=== PATIENT | female | born 1995 | race Caucasian/White ===

== ENCOUNTER 2022-07-15 02:47 | Inpatient (IN) ==
[2022-07-15] MEDS ORDERED: Lidocaine 1% 20 ML MDV INFILT PRN (03:30)
[2022-07-15] MEDS ORDERED: Azithromycin 500 MG in 0.9 % Sodium Chloride 250 ML IVPB PRN (03:30)
[2022-07-15] MEDS ORDERED: Famotidine 20 MG/2 ML VIAL IVP PRN (03:30)
[2022-07-15] MEDS ORDERED: *HR* Nalbuphine 10 MG/ML AMPUL IV PRN (03:30)
[2022-07-15] MEDS ORDERED: Naloxone 0.4 MG/ML INJ IVP PRN (03:30)
[2022-07-15] MEDS ORDERED: Ondansetron 4 MG/2 ML VIAL IVP PRN (03:30)
[2022-07-15] MEDS ORDERED: Ringers Solution, Lactated 1,000 ML IVC SCH (03:30)
[2022-07-15] MEDS ORDERED: Metoclopramide 10 MG/2 ML VIAL IVP PRN (03:30)
[2022-07-15] MEDS ORDERED: Oxytocin 30 UNIT/503 ML BAG IVC SCH ×2 (03:30→13:47)
[2022-07-15] MEDS ORDERED: *HR* FentaNYL (PF) 100 MCG/2 ML VIAL IVP PRN (03:30)
[2022-07-15 04:17] LABS: Basophils % 0.2 %; Eosinophils # 0.1 K/mcL (0.0-0.6); Eosinophils % 0.7 %; Hematocrit 35.2 % (35.3-44.9); Hemoglobin 11.6 g/dL (11.5-15.4); Immature Granulocytes % 0.8 % (0-4); Lymphocytes % 14.5 %; Mean Corpuscular Hemoglobin 25.9 pg (28.0-33.3); Mean Corpuscular Volume 78.6 fL (83.0-100.0); Mean Platelet Volume 8.6 fL (9.4-12.4); Monocytes % 6.2 %; Neutrophils # 9.3 K/mcL (1.6-8.9); Platelet Count 219 K/mcL (140-400); Red Blood Count 4.48 M/mcL (3.82-4.97); Red Cell Distribution Width 24.9 % (11.5-14.5); Segmented Neutrophils % 77.6 %
[2022-07-15 04:18] LABS: Lymphocytes # 1.7 K/mcL (0.6-4.6); Monocytes # 0.7 K/mcL (0.0-1.3)
[2022-07-15 04:25] LABS: Bacteria,Urine Few per hpf (None-Few); Bilirubin,Urine Negative (Negative); Blood,Urine Negative (Negative); Clarity,Urine Turbid (Clear); Color,Urine Yellow (Yellow); Glucose,Urine (UA) Normal (Normal); Hyaline Casts,Urine Few per lpf (None Seen); Ketones,Urine 10 mg/dL (Negative); Leukocyte Esterase,Urine Small (Negative); Mucus,Urine Many per lpf (None-Few); Nitrite,Urine Negative (Negative); Protein,Urine 30 mg/dL (Neg-Trace); RBC,Urine 0-3 per hpf (0-3); Specific Gravity,Urine 1.027 (1.010-1.025); Squamous Epithelial Cell,Urine Moderate per hpf (None-Few); Urobilinogen,Urine Normal (Normal)
[2022-07-15 04:28] LABS: Amphetamine Screen,Urine Negative ng/mL (Cutoff=1000); Barbiturate Screen,Urine Negative ng/mL (Cutoff=200); Benzodiazepines Screen,Urine Negative ng/mL (Cutoff=200); Cannabinoid Screen,Urine Negative ng/mL (Cutoff = 50); Cocaine Screen,Urine Negative ng/mL (Cutoff= 300); Creatinine,Urine 185 mg/dL; Opiate Screen,Urine Negative ng/mL (Cutoff=300); Phencyclidine Screen,Urine Negative ng/mL (Cutoff=25)
[2022-07-15 04:29] LABS: Alanine Aminotransferase 14 Units/L (7-52); Aspartate Amino Transferase 12 Units/L (13-39); BUN/Creatinine Ratio 14 (6-26); Blood Urea Nitrogen 8 mg/dL (6-20); Lactate Dehydrogenase 120 Units/L (140-271); Uric Acid 4.5 mg/dL (2.3-7.6)
[2022-07-15 04:47] LABS: Anisocytosis 3+ (Not Present)
[2022-07-15 04:48] LABS: Microcytosis Present (Not Present); Platelet Estimate Normal (Normal)
[2022-07-15] MEDS ORDERED: Epidural Premix (fent/bupiv) 110 ML EP ONE (07:11)
[2022-07-15] MEDS ORDERED: *HR* Phenylephrine 10 MG/ML VIAL ONE (07:16)
[2022-07-15] MEDS ORDERED: *HR* Ropivacaine/PF 0.5% 20 ML VIAL ONE (09:09)
[2022-07-15] MEDS ORDERED: Ropivacaine/PF 0.2% 20 ML VIAL ONE (09:09)
[2022-07-15] MEDS ORDERED: EPHEDrine 50 MG/ML VIAL IVP PRN (11:17)
[2022-07-15] MEDS ORDERED: Epidural Premix (fent/bupiv) 110 ML EP SCH (11:30)
[2022-07-15] MEDS ORDERED: Benzocaine/Menthol 56 GM AEROSOL SPRAY TP PRN (13:47)
[2022-07-15] MEDS ORDERED: Ondansetron ODT 4 MG TAB.RAPDIS SL PRN (13:47)
[2022-07-15] MEDS ORDERED: Lanolin 7 G OINT...G. TP PRN (13:47)
[2022-07-15] MEDS ORDERED: OXYTOCIN/RINGERS LACTATE 10 UNIT/166.6 ML BAG IVC ONE (13:47)
[2022-07-15] MEDS: Ibuprofen 600 MG TABLET PO SCH ×2 (14:49→20:35)
[2022-07-15] MEDS: Acetaminophen 325 MG TABLET PO SCH ×2 (14:49→20:35)
[2022-07-16] MEDS: Acetaminophen 325 MG TABLET PO SCH ×2 (05:46→12:48)
[2022-07-16] MEDS: Ibuprofen 600 MG TABLET PO SCH ×2 (05:46→12:48)
[2022-07-16 07:04] VITALS: BP 99/62; PULSE 90; TEMP 97.8; O2SAT 98
[2022-07-16] MEDS ORDERED: Prenatal Vit/FA 1 EACH TABLET PO SCH (09:00)
== END 2022-07-16 13:48 | disposition home or self-care (01) | DRG 807 ==
LOC: 1NENULAB 02:47 → 1NENUOBS 12:45
PROVIDERS: ADMIT Obstetrics & Gynecology; ATTEND Obstetrics & Gynecology